=== PATIENT | female | born 1970 | race Caucasian/White ===

== ENCOUNTER → 2019-02-08 | Outpatient (CLI) | payer BC ==
--- NOTE | 2019-02-08 16:59 | PCVCIMAG ---
APPROVED REPORT Study performed: 02/08/2019 15:54:51 Exam: Stress Echocardiogram Indication: Chest pain, Arm tingling Patient Location: Echo lab Stress Nurse: Mery Romero RN Status: routine Ht: 5 ft 2 in HR: 90 bpm BP: 128/92 mmHg Rhythm: NSR Medical History Medical History: HTN, Diabetes Procedure The patient underwent an Exercise Stress Test using the Roe Protocol. Blood pressure, heart rate, and EKG were monitored. An Echocardiogram was performed by aviation safety equipment technician in four stages in quad fashion. At peak stress, four selected images were obtained and placed side by side with resting images for comparison. Stress Test Details Stress Test: Exercise stress testing was performed using a Roe protocol. HR Resting HR: 90 bpmMax Heart Rate (APMHR): 171 bpm Max HR Achieved: 151 bpmTarget HR (85% APMHR): 145 bpm % of APMHR: 88 Recovery HR: 104 bpm HR response to stress: Normal HR response to stress BP Resting BP: 128/92 mmHg Max BP: 180/78 mmHg Recovery BP: 132/74 mmHg BP response to stress: Normal blood pressure response to stress. ECG Resting ECG: Sinus Rhythm Stress ECG: Sinus Rhythm Arrhythmia: None Recovery ECG: Sinus Rhythm Recovery Arrhythmia: None Clinical Reason for Termination: Maximal effort Exercise duration: 9 min 00 sec Highest Stage Achieved: Stage 3: 3.4 mph at 14% grade. Exercise capacity: 10.40 METs Overall Exercise Capacity for Age: Good Stress ECG Conclusion ECG: Non-ischemic Clinical: Non-ischemic Pre-Stress Echo The resting Echocardiogram showed normal left ventricular contractility with an estimated Ejection Fraction of about >55%. Normal wall motion in all segments on baseline images. Post-Stress Echo The stress Echocardiogram showed normal left ventricular contractility with an estimated Ejection Fraction of about 60-65%. Normal augmentation of wall motion in all segments on post stress images. Clinical No clinical or ECG evidence for ischemia. Conclusion Clinical Response: Non-ischemic Exercise Capacity: Good Stress ECG Response: Non-ischemic Stress Echo Images: Non-ischemic No clinical, EKG or echocardiographic evidence for ischemia. Normal stress echocardiogram with maximal exercise stress. Other Information Study Quality: Good <Conclusion> No clinical, EKG or echocardiographic evidence for ischemia. Normal stress echocardiogram with maximal exercise stress.
== END | disposition home or self-care (01) ==
LOC: PCVCIMAG 15:32
PROVIDERS: ATTEND Nurse Practitioner
DX: R07.9 Chest pain, unspecified (principal); F41.9 Anxiety disorder, unspecified; E74.39 Other disorders of intestinal carbohydrate absorption; I10 Essential (primary) hypertension; J45.20 Mild intermittent asthma, uncomplicated; Z78.9 Other specified health status
CPT/HCPCS: 93325; 93351